=== PATIENT | male | born 1940 | race Caucasian/White ===

== ENCOUNTER 2025-02-26 09:53 | Day surgery (SDC) | payer MEDICARE, SELFPAY ==
--- OUTSIDE RECORDS SUMMARY | 2024-11-21 03:24 | XMS_ITS ---
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
--- OUTSIDE RECORDS SUMMARY | 2024-11-27 08:20 | XMS_ITS ---
Author Organization [facility], [place] Address [address] [place], [place] [id number] Care Team Providers Care Human Resources Psychologist Name Role Phone TRINI LEI Primary Care Provider Benjy Ponce Unavailable [phone] ALLERGIES Allergen (clinical drug ingredient) Drug/Non Drug Allergy documented on EMR Reaction Allergy Type Onset Date Status Penicillin Unknown Drug Allergy Active REASON FOR VISIT 1a. Initial Evaluation MEDICATIONS Medication SIG (Take, Route, Frequency, Duration) Notes Start Date End Date Status Meloxicam 15 MG 1 tablet Orally Once a day for 30 day(s) Active Folic Acid 1 MG 1 tablet Orally Once a day for 30 day(s) Active Methotrexate Sodium 2.5 MG 8 tablets Orally weekly Active PreserVision AREDS - 2 capsules Orally daily Active Chlorthalidone 25 MG 1 tablet in the mor joshua with food Orally for 30 day(s) Active Encounters Encounter Location Date Provider Diagnosis Erma [address] [address] 11/27/2024 Benjy Lepe PLAN OF TREATMENT No Information
[2025-02-25 14:48] VITALS: BMI 21.4
--- NOTE | ~2025-02-26 | XR_ITS ---
EXAMINATION: XR fluoroscopy no charge DATE: 02/26/2025 13:23 INDICATION: Bilateral minimally invasive L2-L3, L3-L4 and L4-L5 posterior decompression. TECHNIQUE: 32 fluoroscopic images of the lumbar spine were obtained during procedure performed by Dr. Schultz. Radiologist was not present for the imaging or procedure. The amount of fluoroscopy time used during this procedure was 9.5 minutes. Cumulative radiation dose was 121.49 mGy. COMPARISON: None. FINDINGS: Images demonstrate trochar needle was advanced to the posterior margin of the interlaminar space on the left and right at L3-L4 and L4-L5. IMPRESSION: 1. Fluoroscopy utilized during pain management procedure the lower lumbar spine. See procedure note for further detail. Reviewed, dictated and finalized at location A. IMPRESSION: 1. Fluoroscopy utilized during pain management procedure the lower lumbar spine . See procedure note for further detail.
[2025-02-26 10:15] VITALS: BP 165/82; PULSE 95; RESP 18; TEMP 36.7; O2SAT 100
[2025-02-26] MEDS: LACTATED RINGERS 1,000 ML 30 ML IV CONT (10:35)
--- NOTE | 2025-02-26 11:07 | WPDHPUPDATE1 ---
History and Physical Update Update Date/Time: 02/26/25 11:07 History and Physical has been reviewed, including an updated exam of the patient. There are NO changes in the patient's condition. Risks, benefits, and alternatives have been discussed and questions answered. Patient agrees to proceed with procedure.
--- OUTSIDE RECORDS SUMMARY | 2025-02-26 11:15 | XMS_ITS | Patient Health Record ---
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 Name Role Phone TRINI LEI Primary Care Provider Benjy Ponce Unavailable [phone] ALLERGIES Allergen (clinical drug ingredient) Drug/Non Drug Allergy documented on EMR Reaction Allergy Type Onset Date Status Penicillin Unknown Drug Allergy Active REASON FOR REFERRAL No Information MEDICATIONS Medication SIG (Take, Route, Frequency, Duration) [...] Active Encounters Encounter Location Date Provider Diagnosis [address] [address] 11/21/2024 Benjy Lepe [place] [address] [place] [address] 11/27/2024 Benjy Lepe PLAN OF TREATMENT No Information MEDICAL (GENERAL) HISTORY Medical History History ICD Code hypertension rheumatoid arthritis hyperlipidemia history of smoiking BPH Chronic low back pain elevated PSA Pain in left hip lumbar radiculopathy Surgical History Surgery Date(Month/Year) left knee replacement 01/2024 hernia repair cataract removal
--- OUTSIDE RECORDS SUMMARY | 2025-02-26 11:15 | XMS_ITS | Clinical Summary ---
Author Organization [facility] Address [address] [place] [address] Care Team Providers Care Etcher Photoengraving Name Role Phone Tomy Best MD Primary Care Provider [phone] Marilyn Mendoza MD Unavailable Giancarlo Riley MD Unavailable Allergies Active Allergy Reactions Criticality Noted Date Comments Penicillins Unknown 08/19/2018 Medications meloxicam (MOBIC) 15 MG tablet Take 0.5 tablets (7.5 mg total) by mouth daily. Active folic acid (FOLVITE) 1 MG tablet Take 1 tablet (1 mg total) by mouth daily. Active methotrexate (TREXALL) 5 MG tablet Take 5 tablets by mouth once a week. Active Multiple Vitamins-Minera ls (PRESERVISION AREDS 2 OR) Take 2 capsules by mouth daily. Active chlorthalidone (HYGROTEN) 25 MG tablet Take 1 tablet (25 mg total) by mouth daily. 30 tablet 11 04/04/2024 Active Active Problems No known active problems Encounters Date Type Department Care Team Description 02/15/2025 1:00 PM CDT Office Visit [facility] [address] [place] [address] Marilyn Mendoza MD Follow Up; Surgical Clearance 02/15/2025 Scan [facility] [address] [place] [address] Scanned, Doc Pccl ECG (SCAN) 02/15/2025 Travel 02/12/2025 Telephone [facility] [address] Marilyn Mendoza MD Surgical Clearance (Lumbar decompression @ [facility]) from Last 3 Months Social History Tobacco Use Types Packs/Day Years Used Date Smoking Tobacco: Former Cigarettes Passive Smoke Exposure: Current Smokeless Tobacco: Never Tobacco Cessation:Counseling Given: Not Answered Alcohol Use Standard Drinks/Week Comments Yes 70 (1 standard drink = 0.6 oz pu re alcohol) Sex and Gender Information Value Date Recorded Sex Assigned at Not on file Legal Sex Male 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 Gender Identity Not on file Sexual Orientation Not on file Last Filed Vital Signs Vital Sign Reading Time Taken Comments Blood Pressure 140/80 02/15/2025 12:53 PM CDT Pulse 87 02/15/2025 12:53 PM CDT Temperature - - Respiratory Rate 18 05/31/2023 1:10 PM HR PAYROLL COORDINATOR Oxygen Saturation 97% 02/15/2025 12:53 PM CDT Inhaled Oxygen Concentration - - Weight 64.9 kg (143 lb) 02/15/2025 12:53 PM CDT Height 175.3 cm (5' 9) 02/15/2025 12:53 PM CDT Body Mass Index 21.12 02/15/2025 12:53 PM CDT Plan of Treatment Health Maintenance Due Date Last Done Comments DTaP, Tdap and Td Vaccines ( 1 - Tdap) 02/01/1960 Pneumococcal Vaccine: 50+ Ye ars (1 of 1 - PCV) 1991 Zoster Vaccines (1 of 2) 1991 Annual Medicare Wellness Visit 2006 RSV Immunization or 60+ Years (1 - 1-dose 75+ series) 02/01/2016 PHQ-2 (Physician Huggins) 06/20/2024 COVID-19 Vaccine ( - 2023-2 5 season) 2025 Meningococcal B Vaccine Aged Out No l onger eligible based on patient's age to complete this topic Meningococcal Vaccine Aged Out No leann azul eligible based on patient's age to complete this topic RSV Immunizations Under 20 Months Aged Out No longer eligible based on patient's age to complete this topic Procedures Procedure Name Priority Date/Time Associated Diagnosis Comments ECG GENERIC (SCAN ORDER) Routine 02/15/2025 12:00 AM CDT from Last 3 Months Results * ECG (02/15/2025 12:00 AM CDT) 02/15/2025 us Doc Pccl Scanned SCANNING Final Result [facility] from Last 3 Months Insurance [facility] Care Teams Etcher Photoengraving Relationship Specialty Start Date End Date Nasir, Tomy J, MD [address] [place] [address] PCP - General FAMILY PRACTICE 01/10/24 Marilyn Mendoza MD [address] [place], [place] [address] Consulting Physician CARDIOVASCULAR DISEASE 01/10/24 Giancarlo Riley MD [address] [place] [address] ORTHOPAEDIC SURGERY 01/10/24
--- NOTE | 2025-02-26 12:01 | WPDANESEPPF ---
Anes - Initial Pre Proc Eval Procedure: Operation Date: 02/26/25 11:30 Proposed Procedures p Minimally Invasive Lumbar Decompression Bilateral L2-3, L3-4, L4-5 Under Fluoroscopic Guidance, Possible Epidurogram - Tod Schultz MD Date/Time: 02/26/25 12:01 Surgeon: Tod Schultz MD Pre Op Diagnosis: spinal stenosis lumbosacral region Patient Data Age: 85 Gender: M Height: 1.75 m Weight: 66 kg Last Vital Signs Temp 98.1 F 02/26/25 10:15 Pulse 95 02/26/25 10:15 Resp 18 02/26/25 10:15 BP 165/82 H 02/26/25 10:15 Pulse Ox 100 02/26/25 10:15 O2 Del Method Room Air 02/26/25 10:15 Allergies Allergy/AdvReac Type Severity Reaction Status Date / Time Penicillins Allergy Unknown Verified 02/26/25 10:20 Home Medications ?Medication ?Instructions ?Recorded ?Confirmed ?Type chlorthalidone 25 mg tablet 25 mg PO DAILY 02/05/25 02/25/25 History folic acid 1 mg tablet 1 mg PO DAILY 02/05/25 02/25/25 History meloxicam 7.5 mg tablet 7.5 mg PO DAILY 02/05/25 02/25/25 History Held on 02/26/25. Instructions: Resume on 02/28/25. 48 hours hold methotrexate (PF) 20 mg/0.4 mL 20 mg subcut WEEKLY 02/05/25 02/25/25 History subcutaneous auto-injector (Rasuvo (PF)) vit C 250 mg-vit E 90 mg-zinc 40 1 tablet PO DAILY 02/25/25 02/25/25 History mg-copper 1 lc-yukbrl-ljifbc capsule (PreserVision AREDS-2) cyclobenzaprine 10 mg tablet 10 mg PO TID PRN muscle spasm #21 02/26/25 Rx tabs hydrocodone 5 mg-acetaminophen 325 1 tablet PO Q4-6H PRN pain 7 days 02/26/25 Rx mg tablet #28 tabs methylprednisolone 4 mg tablets in See Rx Instructions PO .COMPLEX 02/26/25 Rx a dose pack (Medrol (Gomez)) Lumbosacral radiculopathy #21 ea Patient hx anesthesia problems: none Family hx anesthesia problems: none Results Review: All pre-operative results and documents have been reviewed as part of the pre-operative evaluation. [facility] Past Medical History Medical History Arthritis Family History Family History Sibling Cancer Social History Social History Smoking status: Unknown if ever smoked Smoking end date: 06/20/85 Additional smoking assessment comments: pt stated he smoked for 29yrs Alcohol intake: current Drinks per week: 42 Alcohol use details: 6 pack of beer daily per patient Substance use: never Substance use type: does not use Anes - Eval Final PreProcedure Day of Procedure 02/26/25 12:01 Heart: regular rate and rhythm Lungs: clear to auscultation Airway: Mallampati scale class II Neurological: alert and oriented Last oral intake: >/= 8 hours ASA classification: III Anesthetic plan: proceed Anesthesia type and monitoring: monitored anesthesia care Results Review: All pre-operative results and documents have been reviewed as part of the pre-operative evaluation. Informed Consent: The patient's anesthetic plan and its attendant risks and benefits were discussed with the patient/family/POA. Questions were solicited and answers provided to the satisfaction of the patient/family/POA.
[2025-02-26] MEDS: CLINDAMYCIN 600 MG/NS 50 ML 600 MG/50 ML PIGGYBACK 100 MG IVPB (12:20)
[2025-02-26] MEDS: LIDOCAINE 2% PF LOCAL INJ 5 ML VIAL 10 ML INFILTRATE (12:42)
[2025-02-26 13:19] VITALS: BP 152/87; PULSE 75; RESP 16; O2SAT 98
[2025-02-26 13:29] VITALS: BP 121/66; PULSE 80; RESP 16; O2SAT 100
[2025-02-26 13:39] VITALS: BP 108/56; PULSE 84; RESP 18; O2SAT 97
--- NOTE | 2025-03-04 12:36 | W.PM.PROC2 ---
Procedure Note - Detailed Date of Procedure 03/04/25 Pre-op Diagnosis spinal stenosis lumbosacral region Post-op Diagnosis Same Procedure Performed Bilateral Minimally Invasive Lumbar Decompression (MILD) at L2-3, L3-4, L4-5 under Fluoroscopic Guidance. Surgeon Tod Schultz MD Special Service Officer None Anesthesia Other ([Moderate IV sedation/MAC] with local anesthetic infiltration in the prone position) Description of Procedure INFORMED CONSENT: Risks, benefits, and alternatives to the procedure were discussed in detail with the patient who expressed explicit understanding and consent to proceed. Risks discussed with the patient included but were not limited to risk of serious local or systemic infection, bleeding/bruising, epidural hematoma, dural puncture or tear resulting in CSF leak and acute or chronic post-dural puncture headache, scarring/deformity, immediate or delayed allergic reaction, decreased mobility, failure to treat pain, inadvertent neurologic injury resulting in increased pain, weakness/paralysis or numbness, inadvertent organ injury, need for additional surgery, allergic reaction, heart attack, stroke, seizure, coma, . Anesthetic risks were also briefly discussed by myself and the technology manager. The patient expressed understanding and consent to proceed, agreeing that potential benefits outweigh risk of harm. All materials required for the procedure were immediately available prior to procedure start. Site and side were confirmed with the patient, compared carefully to the patient chart and consent, and marked prior to transport to the operating room. Appropriate time out procedure was performed per protocol prior to procedure start. PROCEDURE IN DETAIL: The patient was brought to the operative suite and placed in the prone position. Appropriate ASA standard monitors were attached. Anesthesia was initiated without difficulty or event. Eyes were protected. Pressure points were padded with joints in neutral position. When appropriate, breasts and genitals were evaluated and protected. Eyes were checked and were free from undue pressure. Skin overlying the procedure site was marked with sterile marker. Surgical area was prepared in a typical sterile fashion with ChloraPrep and allowed to dry for at least 3 minutes prior to sterilely draping the surgical site. The lumbar spine was identified in the AP fluoroscopic view with slight cephalad tilt perfectly aligning the endplates at the targeted levels with spinous processes bisecting the transpedicular plane. After identifying the intended incision site approximately 1.5 levels inferior to the level of interest, the area was anesthetized by infiltration with no more than 10ml of a 1:1 admixture of 0.5% PF bupivacaine with epinephrine and 2% PF lidocaine with epinepherine via a 27-gauge needle after negative aspiration. A 22-gauge spinal needle was used to provide additional and adequate local anesthesia to the level of the interspinous ligament, ligamentum flavum and the periosteum of the lamina at the intended treatment levels. In the AP view, a #11 scalpel blade was used to create a single stab incision at the intended incision site on the targeted side. The Vertos MILD kit was opened and the included cannula and trocar assembly was advanced through the incision to contact the midportion of the right lamina just adjacent to the spinous process at L5. Once seated, the lateral view was used to gauge depth demonstrating the most anterior tip of the trocar posterior to the epidural space at all times. The assistant infant teacher-provided cannula stabilizer was placed over the trocar flush to the patient's lumbar flank. Cannula obturator with handle was removed. Included depth guide was then attached to the insertion port on the cannula and set to an intitial depth of 15 mm. The bone rongeur was advanced to the depth of the lumbar lamina at the targeted level. Depth gauge was then adjusted allowing rongeur tip to advance in the contralateral oblique view to the anterior border of the superior and inferior lamina at the respective intervertebral foramen. Multiple passes of the rongeur were used in the contralateral oblique view to remove single small portions of ligament and bone in a 360-degree distribution, approximately 3-5 passes on each lamina, until appropriate access to the superior and inferior attachments of the ligamentum flavum was created at the surgical level right L4-5. Each individual portion of bone removed was extracted, collected and discarded. Rongeur was removed and replaced with a tissue sculpter which was deployed from inferior to superior in the contralateral oblique view to delaminate the ligamentum flavum at the intended level with serial groupings of three passes each, 6-9 total per side treated. Tissue extracted was discarded. At no point did the rongeur or tissue sculpter violate the anterior border of the ligament as evidenced by intact interface at the ligament/epidural border. The same procedure was repeated in the exact same fashion, utilizing the initial stab incision, to effectively debulk the ligamentum flavum and decompress the central spinal canal on the right at L2-3, L3-4, with similar results and no evidence of complication. The same exact procedure was then repeated in the exact same fashion, utilizing a new stab incision on the contralateral side, to effectively debulk the ligamentum flavum and decompress the central spinal canal on the left at L2-3, L3-4, L4-5. Bone and tissue sculpters were withdrawn, obturator replaced and trocar removed in the lateral view, entirely and without difficulty. Hemostasis was obtained and confirmed. Benzoin was placed around the incision site(s) and Steri-Strips were placed in a bonita-crossing fashion across the wound(s), which were then covered with Telfa dressing and Tegaderm. The patient was converted to the supine position and transported to the recovery area having tolerated the procedure well with no evidence of complication. The patient was instructed to minimize weightbearing activity, including ambulation, for 48 hours, and to avoid bending, twisting at the waist, overhead work, reaching and lifting, pushing or pulling greater than 5-10 lbs for 48 hours with subsequent return to normal activity as tolerated. The patient is to maintain current dressing for 48 hours, then can remove the original dressing, leaving steri-strips in place until they come off on their own or are removed by their provider. Once removing the outer bandage, the patient will cover the incision with clean gauze and paper tape as needed, changing daily or when soiled. The patient understands they should avoid soaking or submerging the incision for 1 week and can resume showers after 48 hours. Instructions were provided to the patient in both verbal and written form, which the patient obtained, reviewed and signed prior to discharge. The patient was instructed to watch for signs of infection including fevers, chills, night sweats, severe headache, neck stiffness, new neurologic deficit, bowel or bladder changes, increased pain, discharge, bleeding, swelling, opening of or unusual warmth at the incision site. They are to call our office or report directly to the Emergency Department immediately should there be any signs/symptoms of complications such as the above or any other urgent/emergent changes in their condition. COMMENTS: None. COMPLICATIONS: None. DRAINS/PACKING: None. SPECIMEN: None. ESTIMATED BLOOD LOSS: 10 mL. IV FLUIDS: On chart. Pathology None sent Complications No immediate complications Condition Stable Disposition PACU [facility] Billing Surgery - Charge Forward: Surgery Billing
== END 2025-02-26 14:08 | disposition home or self-care (01) ==
PROVIDERS: Visit Provider Anesthesiology Pain Medicine
PROC: (CPT 0275T; principal; 2025-02-26 11:30)
DX: M48.062 Spinal stenosis, lumbar region with neurogenic claudication (principal); M47.817 Spondylosis without myelopathy or radiculopathy, lumbosacral region; Z00.6 Encounter for examination for normal comparison and control in clinical research program
CPT/HCPCS: 0275T; 99199; C1889